=== PATIENT | male | born 1945 | race Caucasian/White ===

== ENCOUNTER 2019-01-04 10:06 | Emergency (ER) | payer MEDICARE, OTHER, SELFPAY ==
[2019-01-04 10:08] VITALS: BP 172/99; PULSE 67; RESP 16; TEMP 36.6; O2SAT 97; BMI 30.2
--- NOTE | 2019-01-04 10:23 | ED.DCSUM_ITS ---
History of Present Illness Chief Complaint: Dizziness Informant: Patient Onset: Weeks Current Severity: Mild Narrative: The patient indicates history of diabetes hearing aids, indicates complains that for about a week since last has had a buzzing sensation pinging sensation in the right ear, indicates initially occurred when he got out of the shower he had water in his ear canal he tried to remove it gently but he applied his hearing aid and then began having the sensation with that application of hearing aid just constant pinging buzzing noise to the right ear causing him to be dizzy and slightly nauseated, he has a history of vertigo but nothing recent [facility], he has no history of stroke or seizure he has had no head trauma otherwise no fever no cough chest pain abdominal pain no numbness weeks paresthesias he is able to eat and drink he was able to walk around the ED room without difficulty nothing makes the buzzing pinging sensation noise better, Past Medical History - Allergies and Home Meds Allergies/Adverse Reactions: Allergies No Known Allergies Allergy (Verified 01/04/19 10:07) Past Medical History: - - Diabetes and as above Review of Systems General: Denies: Chills, Fever, Sweats Eyes: Denies: Visual changes - bilaterally, Diplopia ENT: Reports: Right ear pain, - - Does not read described as a pain but a sensation of buzzing and pinging noises no trauma no drainage. Denies: Rhinorrhea, Sore throat Cardiovascular: Denies: Chest pain, Palpitations Respiratory: Denies: Dyspnea, Cough, Dyspnea on exertion Gastrointestinal: Denies: Abdominal pain, Nausea, Vomiting, Diarrhea, Melena, Hematochezia Genitourinary: Denies: Dysuria, Hematuria, Frequency Musculoskeletal: Denies: Back pain, Extremity Pain Skin: Denies: Rash, Wounds Neurological: Denies: Headache, Weakness, Numbness Physical Exam Vital Signs/Narrative: Vital Signs Temp Pulse Resp BP Pulse Ox 01/04/19 10:08 98 F 67 16 172/99 H 97 General: Well nourished, Well developed, No Acute Distress Head: Normocephalic, Atraumatic Eyes: Perrl, EOMI ENT: Moist mucous membranes, No rhinorrhea, TM's clear, - - Questionable minimal serous effusion to the right ear but generally the canal the drum are unremarkable he has the hearing aid out there is no pain with traction of the tragus the temporal bone and HEENT exam otherwise unremarkable Neck: Supple, Nontender Cardiovascular: Regular rate, Regular rhythm, No murmurs Respiratory: No distress, CTA bilaterally, Chest nontender Abdomen: Soft, Nontender, Nondistended, Normal bowel sounds Back: Nontender, Normal Inspection Extremities: Nontender, No edema Skin: Normal color, No rash Neurological: Alert, Oriented x3, Cranial nerves II-XII grossly intact, Normal Strength, Normal Sensation Psychological: Normal affect, Normal Mood Diagnostic/Tx/Re-eval - Medical Decision Making Patient's been having symptoms for about a week, he temporally describes all the above related to getting his ear wet applying the hearing aid etc. his only co mplaint is a sensation of noise to the right ear I explained the differential to him and his I explained that typically would do lab work head CT EKG etc. he declined all that he wanted some medicine for his current symptoms, he would prefer to follow-up with either the [facility] department or Dr. Vital who has seen family members of his At this time be started on amoxicillin Claritin Cortisporin otic suspension avoid using the hearing aid and follow-up with ENT physician of his choice return for change in symptoms Home stable Final impression Right ear discomfort, associated dizziness ED Disposition - Plan for ED Patient: Diagnosis: Tinnitus of right ear Instructions: DIZZINESS, Unk Cause, VERTIGO, Unspecified Prescriptions: Amoxicillin 500 mg PO TID #30 tab Prescription Printed Amoxicillin 500 mg PO TID #30 tab Prescription Printed Loratadine [Claritin] 10 mg PO DAILY #10 cap Prescription Printed Neomyc/Colist/Hydrocort/Thonzn [Cortisporin-Tc Ear Suspension] 10 ml OT 4X/DAY #10 drops.susp Prescription Printed Additional Instructions: Please follow-up with the ENT physician of your choice or Dr. Vital avoid using the hearing aid return for change in symptoms
== END 2019-01-04 10:52 | disposition home or self-care (01) ==
LOC: ED 10:41
PROVIDERS: Emergency Provider Emergency Medicine
DX: H93.11 Tinnitus, right ear (principal); R42 Dizziness and giddiness; E11.9 Type 2 diabetes mellitus without complications
CPT/HCPCS: 99282

== ENCOUNTER → 2020-10-29 16:14 | Outpatient (CLI) | payer MEDICARE, OTHER, SELFPAY ==
[2020-10-29 17:29] LABS: Absolute Neutrophil Count 4.7 X10^3/uL (2.0-7.7); Basophil# 0.06 X10^3/uL; Basophil% 0.7 % (0-1); Eosinophil# 0.12 X10^3/uL; Eosinophils% 1.5 % (0-5); Hematocrit 38.6 % (40-54); Hemoglobin 13.2 g/dL (13.0-16.5); Lymphocyte % 31.1 % (19-41); Mean Corp Hgb Conc 34.2 g/dL (32-36); Mean Corpuscular Hgb 31.3 pg (27.0-32.0); Mean Corpuscular Volume 91.5 fL (80-94); Mean Platelet Vol. 10.3 fl (6.2-12.0); Monocyte# 0.57 X10^3/uL; Monocyte% 7.1 % (0-10); NRBC Flagged by Analyzer 0 % (0-5); Neutrophil # 4.72 X10^3/uL (2.7-7.7); Neutrophil % 58.7 % (47-70); Platelet Count 268 K/mm3 (150-450); RBC Distribution Width CV 14.6 % (11.6-14.6); RBC Distribution Width SD 49.1 fl (35.1-43.9); Red Blood Count 4.22 M/mm3 (4.6-6.2)
[2020-10-29 18:00] LABS: ALB/GLOB Ratio 1.1 RATIO (0.9-2.4); AST(SGOT) 19 U/L (15-37); Alanine Aminotransfer ALT/SGPT 17 U/L (16-61); Albumin, Serum 3.7 g/dL (3.2-5.0); Alkaline Phosphatase 48 U/L (45-117); Anion Gap 5 (5-15); BUN 16 mg/dL (7-18); BUN/Creat Ratio 12.5 RATIO (10-20); Calcium,Total 8.9 mg/dL (8.5-10.1); Chloride 109 mmol/L (98-107); Creatinine, Serum 1.28 mg/dL (0.70-1.30); EST Glomerular Filtration Rate 58 mL/min (>60); Est Glom Filt Rate - Afr Amer 71 mL/min (>60); Globulin 3.4 g/dL (2.2-4.2); Glucose 168 mg/dL (74-106); PSA,Total - Annual Screen 1.27 ng/mL (0.00-4.00); Potassium 4.1 mmol/L (3.5-5.1); Protein, Total 7.1 g/dL (6.4-8.2); Sodium Level 142 mmol/L (136-145); Thyroid Stim Hormone (TSH) 1.84 uIU/mL (0.358-3.74); Uric Acid 7.2 mg/dL (3.5-7.2)
[2020-10-30 08:16] LABS: Hepatitis C Antibody REACTIVE (Nonreactive)
== END ==
PROVIDERS: Visit Provider Family Medicine Geriatric Medicine
DX: Z13.89 Encounter for screening for other disorder (principal); Z12.5 Encounter for screening for malignant neoplasm of prostate; M10.9 Gout, unspecified; I10 Essential (primary) hypertension
CPT/HCPCS: 36415; 80053; 84153; 84443; 84550; 85025; 86803; G0103

== ENCOUNTER → 2020-11-20 12:35 | Outpatient (CLI) | payer MEDICARE, SELFPAY ==
--- NOTE | 2020-11-20 12:41 | CT_ITS ---
STUDY: LOW DOSE CT LUNG CANCER SCREENING REASON FOR EXAM: Male, 75 years old. HO TOBACCO USE. Former smoker. The patient smoked 1 pack per day for 8 years. RADIATION DOSAGE (If Supplied By Facility): CTDIvol = ( 4.02 ) mGy, DLP = ( 152.00 ) mGycm TECHNIQUE: No contrast was administered. Low dose technique was utilized (average mAS-38 and kVp 120). 1.25 mm axial source images with a slice interval of 1.25-mm were reconstructed in lung windows. 2.5 mm axial source images with a slice interval of 2.5-mm were reconstructed in lung windows. 5.0 mm axial source images with a slice interval of 5.0-mm were reconstructed in soft tissue windows. Nodule measured using lung windows on PACS and/or independent workstation with automated measurement of minimum and maximum diameter. Nodule measurement reported as average diameter rounded to the nearest whole number. Growth is defined as an increase ins size of greater than 1.5 mm. COMPARISON: None. The patient is status post right shoulder replacement. NODULES: No suspicious nodules are seen. Emphysema: Mild degree of hyperinflation. Endobronchial lesion: None Aorta: Aortic calcification. Coronary arteries: Coronary artery calcification. Heart: Unremarkable Pulmonary artery: Unremarkable Mediastinal nodes: Calcified left hilar lymph nodes. Calcified lymph nodes in the aortopulmonary window. Other chest and abdominal findings: CT/Low Dose CT Lung Screening IMPRESSION: Lung-RADS category 2 - Continue annual screening with LDCT in 12 months. IMPORTANT NOTES FOR USE: ACR Lung-RADS Version 1.1 Assessment Categories Release Date: 2018 Category: Coded 0-4 bases on nodule(s) with highest degree of suspicion. Negative screen is defined as categories 1 and 2; a positive screen is defined as categories 3 and 4. Category 3 and 4A nodules that are unchanged on interval CT should be coded as category 2, and individuals returned to screening in 12 months. Category 4X: Category 3 or 4 nodules with additional imaging findings that increase the suspicion of lung cancer, such as spiculation, GGN that doubles in size in 1 year, enlarged lymph notes, etc. Category Modifiers: S (significant finding unrelated to lung cancer) Electronically Signed: Jude Sutton MD at 13:39 EDT , Service support ,
== END ==
PROVIDERS: PCP Family Medicine Geriatric Medicine; Referring Provider Family Medicine Geriatric Medicine; Visit Provider Family Medicine Geriatric Medicine
DX: Z12.2 Encounter for screening for malignant neoplasm of respiratory organs (principal); Z87.891 Personal history of nicotine dependence
CPT/HCPCS: 71271

== ENCOUNTER → 2021-01-29 13:41 | Outpatient (CLI) | payer MEDICARE, SELFPAY ==
[2021-01-29 16:45] LABS: Vitamin D,25 Hydroxy 32.6 ng/mL
[2021-01-29 16:58] LABS: ALB/GLOB Ratio 1.2 RATIO (0.9-2.4); AST(SGOT) 13 U/L (15-37); Alanine Aminotransfer ALT/SGPT 14 U/L (16-61); Albumin, Serum 3.6 g/dL (3.2-5.0); Alkaline Phosphatase 55 U/L (45-117); Anion Gap 7 (5-15); BUN 13 mg/dL (7-18); BUN/Creat Ratio 10.2 RATIO (10-20); Calcium,Total 8.6 mg/dL (8.5-10.1); Chloride 104 mmol/L (98-107); Creatinine, Serum 1.27 mg/dL (0.70-1.30); EST Glomerular Filtration Rate 59 mL/min (>60); Est Glom Filt Rate - Afr Amer 71 mL/min (>60); Globulin 3.1 g/dL (2.2-4.2); Glucose 263 mg/dL (74-106); Potassium 4.5 mmol/L (3.5-5.1); Protein, Total 6.7 g/dL (6.4-8.2); Sodium Level 137 mmol/L (136-145); Thyroid Stim Hormone (TSH) 1.45 uIU/mL (0.358-3.74); Uric Acid 4.5 mg/dL (3.5-7.2)
[2021-01-29 17:03] LABS: Absolute Lymphocyte Count 1.99 X10^3/uL (0.83-4.51); Basophil# 0.03 X10^3/uL; Basophil% 0.5 % (0-1); Eosinophil# 0.14 X10^3/uL; Eosinophils% 2.5 % (0-5); Hematocrit 37.9 % (40-54); Hemoglobin 13.1 g/dL (13.0-16.5); Lymphocyte # 1.99 X10^3/ul (0.83-4.51); Lymphocyte % 35.5 % (19-41); Mean Corp Hgb Conc 34.6 g/dL (32-36); Mean Corpuscular Hgb 31.9 pg (27.0-32.0); Mean Corpuscular Volume 92.2 fL (80-94); Mean Platelet Vol. 10.7 fl (6.2-12.0); Monocyte# 0.45 X10^3/uL; NRBC Flagged by Analyzer 0 % (0-5); Neutrophil # 2.99 X10^3/uL (2.7-7.7); Neutrophil % 53.3 % (47-70); Platelet Count 177 K/mm3 (150-450); RBC Distribution Width CV 14.2 % (11.6-14.6); RBC Distribution Width SD 47.6 fl (35.1-43.9); Red Blood Count 4.11 M/mm3 (4.6-6.2); White Blood Count 5.6 K/mm3 (4.4-11.0)
== END ==
PROVIDERS: PCP Family Medicine Geriatric Medicine; Visit Provider Family Medicine Geriatric Medicine
DX: E11.65 Type 2 diabetes mellitus with hyperglycemia (principal); I10 Essential (primary) hypertension; E55.9 Vitamin D deficiency, unspecified; M10.9 Gout, unspecified
CPT/HCPCS: 36415; 80053; 82306; 84443; 84550; 85025

== ENCOUNTER → 2021-11-10 | Outpatient (CLI) | payer MEDICARE, SELFPAY ==
[2021-11-10 17:32] LABS: Absolute Lymphocyte Count 2.17 X10^3/uL (0.83-4.51); Absolute Neutrophil Count 3.6 X10^3/uL (2.0-7.7); Basophil# 0.03 X10^3/uL; Basophil% 0.5 % (0-1); Eosinophil# 0.11 X10^3/uL; Eosinophils% 1.7 % (0-5); Hematocrit 39.1 % (40-54); Hemoglobin 13.3 g/dL (13.0-16.5); Lymphocyte # 2.17 X10^3/ul (0.83-4.51); Lymphocyte % 34.3 % (19-41); Mean Corpuscular Hgb 31.5 pg (27.0-32.0); Mean Corpuscular Volume 92.7 fL (80-94); Mean Platelet Vol. 11.4 fl (6.2-12.0); Monocyte# 0.41 X10^3/uL; Monocyte% 6.5 % (0-10); NRBC Flagged by Analyzer 0 % (0-5); Neutrophil # 3.58 X10^3/uL (2.7-7.7); Neutrophil % 56.5 % (47-70); Platelet Count 172 K/mm3 (150-450); RBC Distribution Width CV 14.7 % (11.6-14.6); RBC Distribution Width SD 49.8 fl (35.1-43.9); Red Blood Count 4.22 M/mm3 (4.6-6.2); White Blood Count 6.3 K/mm3 (4.4-11.0)
[2021-11-10 19:00] LABS: ALB/GLOB Ratio 1.2 RATIO (0.9-2.4); AST(SGOT) 16 U/L (15-37); Alanine Aminotransfer ALT/SGPT 14 U/L (16-61); Albumin, Serum 3.7 g/dL (3.2-5.0); Alkaline Phosphatase 52 U/L (45-117); Anion Gap 7 (5-15); BUN 25 mg/dL (7-18); BUN/Creat Ratio 18.9 RATIO (10-20); Calcium,Total 9.1 mg/dL (8.5-10.1); Chloride 109 mmol/L (98-107); Cholesterol 118 mg/dL (200); Creatinine, Serum 1.32 mg/dL (0.70-1.30); EST Glomerular Filtration Rate 56 mL/min (>60); Est Glom Filt Rate - Afr Amer 68 mL/min (>60); Glucose 269 mg/dL (74-106); High Density Lipoprotein 33 mg/dL; Potassium 4.5 mmol/L (3.5-5.1); Protein, Total 6.7 g/dL (6.4-8.2); Sodium Level 140 mmol/L (136-145); Thyroid Stim Hormone (TSH) 1.52 uIU/mL (0.358-3.74); Triglycerides 145 mg/dL; Uric Acid 5.1 mg/dL (3.5-7.2); Very Low Density Lipoprotein 29 mg/dL (5-40)
== END | disposition home or self-care (01) ==
LOC: POLAB3 14:56
PROVIDERS: PCP Family Medicine Geriatric Medicine; Visit Provider Family Medicine Geriatric Medicine
DX: E55.9 Vitamin D deficiency, unspecified (principal); E11.65 Type 2 diabetes mellitus with hyperglycemia; E78.5 Hyperlipidemia, unspecified; M10.9 Gout, unspecified; R53.83 Other fatigue
CPT/HCPCS: 36415; 80053; 80061; 82306; 84443; 84550; 85025

== ENCOUNTER → 2022-03-02 | Outpatient (CLI) | payer MEDICARE, SELFPAY ==
--- NOTE | 2022-03-02 15:11 | VDLE_ITS ---
Reason For Study: edema RIGHT GSV is normal. CFV is compressible, spontaneous, phasic, competent and demonstrates normal augmentation. FV is compressible, spontaneous, phasic, competent and demonstrates normal augmentation. POP V is compressible, spontaneous, phasic, competent and demonstrates normal augmentation. T/P Trunk is compressible. PTV is compressible. RT PerV is compressible. Procedure This is a venous duplex using B-mode, color flow and spectral Doppler. Exam performed in department. The exam was abbreviated due to the COVID 19 protocol. The exam was diagnostic. A preliminary report was called and/or faxed to Dr. Cochran. VL/Venous Duplex US, Unilateral Interpretation Summary Deep veins of the right lower extremity are patent and compressible segmentally . There is no evidence of right lower extremity deep vein thrombosis. Valvular competence estefany ears intact within the proximal deep venous system on the right . The right great saphenous vein a ppears patent and compressible segmentally. Ordering Physician: Rojelio Cochran Chi Performed By: Rufus Moy RVT
--- NOTE | 2022-03-02 15:35 | RAD_ITS ---
STUDY: X-RAY - RIGHT KNEE REASON FOR EXAM: Chronic right knee pain. TECHNIQUE: 4 view(s) of the knee. COMPARISON: None. FINDINGS: Normal visualized distal femur. Normal visualized proximal tibia and fibula. Normal proximal tibiofibular articulation. There are marginal osteophytes and joint space loss of the medial femorotibial compartment. There are small marginal osteophytes with preservation of joint space of the lateral femorotibial compartment. There are marginal osteophytes and joint space narrowing of the patellofemoral articulation. There is a joint effusion. There is vascular calcification. RAD/Knee 4 or More Views IMPRESSION: Arthrosis of the medial femorotibial and patellofemoral compartments. Joint effusion. Electronically Signed: Wyatt Dotson MD at 15:00 EDT ,
== END | disposition home or self-care (01) ==
LOC: CVS 15:09
PROVIDERS: PCP Family Medicine Geriatric Medicine; Referring Provider Family Medicine Geriatric Medicine; Visit Provider Family Medicine Geriatric Medicine
DX: R60.0 Localized edema (principal); M25.569 Pain in unspecified knee
CPT/HCPCS: 73564; 93971

== ENCOUNTER → 2022-04-07 | Outpatient (CLI) | payer MEDICARE, SELFPAY | END | disposition home or self-care (01) | LOC: PSN 08:49 | PROVIDERS: PCP Family Medicine Geriatric Medicine; Referring Provider Family Medicine Geriatric Medicine; Visit Provider Family Medicine Geriatric Medicine | DX: R68.83 Chills (without fever) (principal) | CPT/HCPCS: 87426; C9803 ==

== ENCOUNTER → 2022-05-11 | Outpatient (CLI) | payer MEDICARE, SELFPAY ==
[2022-05-11 17:08] LABS: Absolute Lymphocyte Count 2.19 X10^3/uL (0.83-4.51); Absolute Neutrophil Count 4.6 X10^3/uL (2.0-7.7); Basophil# 0.04 X10^3/uL; Basophil% 0.5 % (0-1); Eosinophil# 0.08 X10^3/uL; Eosinophils% 1.1 % (0-5); Hematocrit 39.9 % (40-54); Hemoglobin 13.5 g/dL (13.0-16.5); Lymphocyte # 2.19 X10^3/ul (0.83-4.51); Lymphocyte % 29.9 % (19-41); Mean Corp Hgb Conc 33.8 g/dL (32-36); Mean Corpuscular Hgb 31.7 pg (27.0-32.0); Mean Corpuscular Volume 93.7 fL (80-94); Mean Platelet Vol. 10.7 fl (6.2-12.0); Monocyte# 0.43 X10^3/uL; Monocyte% 5.9 % (0-10); NRBC Flagged by Analyzer 0 % (0-5); Neutrophil # 4.58 X10^3/uL (2.7-7.7); Neutrophil % 62.5 % (47-70); Platelet Count 194 K/mm3 (150-450); RBC Distribution Width CV 15.9 % (11.6-14.6); RBC Distribution Width SD 54.4 fl (35.1-43.9); Red Blood Count 4.26 M/mm3 (4.6-6.2); White Blood Count 7.3 K/mm3 (4.4-11.0)
[2022-05-11 17:47] LABS: Vitamin D,25 Hydroxy 35.9 ng/mL
[2022-05-11 18:32] LABS: ALB/GLOB Ratio 1.1 RATIO (0.9-2.4); AST(SGOT) 14 U/L (15-37); Alanine Aminotransfer ALT/SGPT 15 U/L (16-61); Albumin, Serum 3.6 g/dL (3.2-5.0); Alkaline Phosphatase 54 U/L (45-117); Anion Gap 9 (5-15); BUN 25 mg/dL (7-18); BUN/Creat Ratio 19.2 RATIO (10-20); Calcium,Total 9.1 mg/dL (8.5-10.1); Chloride 105 mmol/L (98-107); EST Glomerular Filtration Rate 57 mL/min (>60); Est Glom Filt Rate - Afr Amer 69 mL/min (>60); Globulin 3.2 g/dL (2.2-4.2); Glucose 197 mg/dL (74-106); Potassium 3.8 mmol/L (3.5-5.1); Protein, Total 6.8 g/dL (6.4-8.2); Sodium Level 140 mmol/L (136-145); Thyroid Stim Hormone (TSH) 1.39 uIU/mL (0.358-3.74); Uric Acid 4.7 mg/dL (3.5-7.2)
== END | disposition home or self-care (01) ==
LOC: POLAB3 13:55
PROVIDERS: PCP Family Medicine Geriatric Medicine; Visit Provider Family Medicine Geriatric Medicine
DX: I10 Essential (primary) hypertension (principal); E11.65 Type 2 diabetes mellitus with hyperglycemia; M10.9 Gout, unspecified; E55.9 Vitamin D deficiency, unspecified; F52.8 Other sexual dysfunction not due to a substance or known physiological condition
CPT/HCPCS: 36415; 80053; 82306; 84403; 84443; 84550; 85025

== ENCOUNTER 2022-06-23 08:37 | Outpatient (CLI) | payer MEDICARE, SELFPAY ==
--- NOTE | 2022-06-23 10:29 | NEURO_ITS ---
NCS and/or EMG Patient Report Ordering Doctor: Rojelio Cochran Chi DATE OF SERVICE: 06/23/22 Bryan presents for electrodiagnostic testing of the right lower limb. He reports numbness and tingling in the right leg from the knee to the foot. He has a history of diabetes. Electrodiagnostic findings: Right peroneal nerve demonstrates normal distal latency and amplitude with borderline reduced conduction velocity. Right tibial motor responses within normal limits prolonged right tibial F wave. Prolonged H reflex bilaterally. Absent sensory responses on the right side, including sural superficial peroneal and medial plantar response. On needle EMG, all muscles tested in the right lower limb, as well as right l umbar paraspinals, showed no evidence of denervation with normal motor unit action potentials Electrodiagnostic impression: This is an abnormal study in the right lower limb. 1. Electrodiagnostic findings demonstrate absence of sensory response in the right lower limb. 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 Consider correlation with left lower limb and potentially one upper limb further evaluate. 2. No electrodiagnostic evidence is noted for lumbosacral radiculopathy
== END 2022-06-23 23:59 | disposition home or self-care (01) ==
LOC: PSN 08:39
PROVIDERS: PCP Family Medicine Geriatric Medicine; Referring Provider Family Medicine Geriatric Medicine; Visit Provider Family Medicine Geriatric Medicine
DX: M25.569 Pain in unspecified knee (principal); R20.0 Anesthesia of skin; R20.2 Paresthesia of skin
CPT/HCPCS: 95886; 95910

== ENCOUNTER → 2022-08-17 | Outpatient (CLI) | payer MEDICARE, SELFPAY ==
--- NOTE | 2022-08-17 12:21 | RAD_ITS ---
STUDY: X-RAY - LEFT WRIST REASON FOR EXAM: Male, 76 years old. Pain, history of gout TECHNIQUE: 3 view(s) of the wrist were obtained. COMPARISON: None. FINDINGS: Normal visualized distal radius and ulna. Calcific densities adjacent to the distal ulna likely represent old ununited fracture fragments. Normal radiocarpal articulation. Normal distal radioulnar articulation. Normal carpal bones. Normal carpal articulations. There is degenerative arthrosis of the carpometacarpal articulation of the thumb. Normal second through fifth carpometacarpal articulations. Normal visualized metacarpal bones. The soft tissue structures are unremarkable. RAD/Wrist min 3 Views IMPRESSION: No acute fracture or suspicious osseous lesion, likely old ununited fracture fragments adjacent to the distal ulna Severe first CMC joint arthrosis without subchondral change Electronically Signed: Johnson Whyte MD at 12:41 EDT ,
[2022-08-17 13:31] LABS: Erythrocyte Sedimentation Rate 4 mm/hr (0-20)
[2022-08-17 13:33] LABS: Absolute Lymphocyte Count 2.14 X10^3/uL (0.83-4.51); Absolute Neutrophil Count 3.9 X10^3/uL (2.0-7.7); Basophil# 0.06 X10^3/uL; Basophil% 0.9 % (0-1); Eosinophil# 0.26 X10^3/uL; Eosinophils% 3.8 % (0-5); Hematocrit 39.9 % (40-54); Hemoglobin 13.4 g/dL (13.0-16.5); Lymphocyte # 2.14 X10^3/ul (0.83-4.51); Lymphocyte % 31.1 % (19-41); Mean Corp Hgb Conc 33.6 g/dL (32-36); Mean Corpuscular Hgb 30.7 pg (27.0-32.0); Mean Corpuscular Volume 91.3 fL (80-94); Mean Platelet Vol. 10.5 fl (6.2-12.0); Monocyte# 0.49 X10^3/uL; Monocyte% 7.1 % (0-10); NRBC Flagged by Analyzer 0 % (0-5); Neutrophil # 3.91 X10^3/uL (2.7-7.7); Neutrophil % 56.8 % (47-70); Platelet Count 195 K/mm3 (150-450); RBC Distribution Width CV 16.6 % (11.6-14.6); RBC Distribution Width SD 54.9 fl (35.1-43.9); Red Blood Count 4.37 M/mm3 (4.6-6.2); White Blood Count 6.9 K/mm3 (4.4-11.0)
[2022-08-17 13:47] LABS: Anion Gap 8 (5-15); BUN 16 mg/dL (7-18); BUN/Creat Ratio 12.5 RATIO (10-20); CRP 5.25 mg/L (0.0-3.0); Chloride 110 mmol/L (98-107); Creatinine, Serum 1.28 mg/dL (0.70-1.30); EST Glomerular Filtration Rate 58 mL/min (>60); Est Glom Filt Rate - Afr Amer 70 mL/min (>60); Glucose 183 mg/dL (74-106); Potassium 4.4 mmol/L (3.5-5.1); Sodium Level 142 mmol/L (136-145); Uric Acid 3.8 mg/dL (3.5-7.2)
== END | disposition home or self-care (01) ==
PROVIDERS: PCP Family Medicine Geriatric Medicine; Visit Provider Family Medicine Geriatric Medicine
DX: M10.9 Gout, unspecified (principal); M25.522 Pain in left elbow
CPT/HCPCS: 36415; 73110; 80048; 84550; 85025; 85652; 86140

== ENCOUNTER → 2022-09-15 | Outpatient (CLI) | payer MEDICARE, SELFPAY ==
[2022-09-15 18:05] LABS: Hematocrit 38.8 % (40-54); Hemoglobin 13.3 g/dL (13.0-16.5); Mean Corp Hgb Conc 34.3 g/dL (32-36); Mean Corpuscular Hgb 31.4 pg (27.0-32.0); Mean Corpuscular Volume 91.7 fL (80-94); Mean Platelet Vol. 10.7 fl (6.2-12.0); Platelet Count 227 K/mm3 (150-450); RBC Distribution Width CV 16.8 % (11.6-14.6); RBC Distribution Width SD 55.7 fl (35.1-43.9); Red Blood Count 4.23 M/mm3 (4.6-6.2); White Blood Count 7.1 K/mm3 (4.4-11.0)
[2022-09-15 18:11] LABS: International Normalized Ratio 1.1; Prothrombin Time (Protime)PT. 14.1 SECONDS (11.7-14.9)
[2022-09-15 18:27] LABS: Anion Gap 9 (5-15); BUN 26 mg/dL (7-18); BUN/Creat Ratio 17.6 RATIO (10-20); Calcium,Total 9.4 mg/dL (8.5-10.1); Chloride 109 mmol/L (98-107); Creatinine, Serum 1.48 mg/dL (0.70-1.30); EST Glomerular Filtration Rate 49 mL/min (>60); Est Glom Filt Rate - Afr Amer 59 mL/min (>60); Glucose 216 mg/dL (74-106); Potassium 4.3 mmol/L (3.5-5.1); Sodium Level 139 mmol/L (136-145)
[2022-09-16 14:44] LABS: AST(SGOT) 19 U/L (15-37); Alanine Aminotransfer ALT/SGPT 19 U/L (16-61); Albumin, Serum 3.8 g/dL (3.2-5.0); Alkaline Phosphatase 51 U/L (45-117); Bilirubin, Direct 0.12 mg/dL (0.00-0.30); Globulin 3.3 g/dL (2.2-4.2); Magnesium 1.7 mg/dL (1.6-2.6); Protein, Total 7.1 g/dL (6.4-8.2)
[2022-09-16 15:14] LABS: Hemoglobin A1c 6.7 % (3.8-5.6)
== END | disposition home or self-care (01) ==
LOC: POLAB3 16:27
PROVIDERS: Anesthesiology; Orthopaedic Surgery; PCP Family Medicine Geriatric Medicine; Visit Provider Family Medicine Geriatric Medicine
DX: Z01.818 Encounter for other preprocedural examination (principal); E11.65 Type 2 diabetes mellitus with hyperglycemia
CPT/HCPCS: 36415; 80048; 80076; 83036; 83735; 85027; 85610

== ENCOUNTER → 2022-09-20 | Outpatient (CLI) | payer OTHER, SELFPAY ==
--- NOTE | 2022-09-20 16:53 | CT_ITS ---
EXAM: CT RIGHT LOWER EXTREMITY WITHOUT INTRAVENOUS CONTRAST CLINICAL INDICATION: UNILATERAL PRIMARY OSTEOARTHRITIS, RIGHT KNEE TECHNIQUE: Helically acquired images were obtained of the right lower extremity without intravenous contrast. 2-D reformats were performed by the technologist. CTDIvol = ( 19.91 ) mGy, DLP = ( 1234.53 ) mGycm This CT exam was performed using one or more of the following dose reduction techniques: automated exposure control, adjustment of the mA and/or kV according to patient size, and/or use of iterative reconstruction technique. This report was created using [employer] technology. COMPARISON: None. FINDINGS: BONES/JOINTS: Severe tricompartmental osteoarthritis of right knee is worse at the patellofemoral and medial femorotibial compartments. At least moderate suprapatellar joint effusion. Moderate osteoarthrosis involving the right hip. Mild to moderate osteoarthrosis of the tibiotalar articulation. Ankle mortise is intact with no osteochondral lesions at the tibiotalar articulation. Prominent posterior calcaneal enthesophyte. Old nonunited fracture involving the fibular head. No acute or healing fracture or malalignment. SOFT TISSUES: Intra-articular ossific bodies are identified within a small Lowe''s cyst, the larger one measuring up to 2 cm. No soft tissue swelling or gas. No radiopaque foreign body. VASCULATURE: Peripheral vascular calcifications. CT/Extremity Lower without Contra IMPRESSION: Preoperative planning study showing severe tricompartmental osteoarthrosis of the knee. Intra-articular ossific bodies within a small Lowe''s cyst. Electronically Signed: David Hammonds MD at 3:59 EDT ,
== END | disposition home or self-care (01) ==
LOC: CT 16:38
PROVIDERS: PCP Family Medicine Geriatric Medicine; Referring Provider Orthopaedic Surgery; Visit Provider Orthopaedic Surgery
DX: M17.11 Unilateral primary osteoarthritis, right knee (principal)
CPT/HCPCS: 73700

== ENCOUNTER → 2022-09-23 | Outpatient (CLI) | payer MEDICARE, SELFPAY ==
[2022-09-23 10:25] LABS: Anion Gap 6 (5-15); BUN 19 mg/dL (7-18); BUN/Creat Ratio 14.1 RATIO (10-20); Calcium,Total 9.6 mg/dL (8.5-10.1); Chloride 107 mmol/L (98-107); Creatinine, Serum 1.35 mg/dL (0.70-1.30); EST Glomerular Filtration Rate 55 mL/min (>60); Est Glom Filt Rate - Afr Amer 66 mL/min (>60); Glucose 243 mg/dL (74-106); Sodium Level 136 mmol/L (136-145)
== END | disposition home or self-care (01) ==
LOC: LAB 09:34
PROVIDERS: PCP Family Medicine Geriatric Medicine; Referring Provider Family Medicine Geriatric Medicine; Visit Provider Family Medicine Geriatric Medicine
DX: R94.4 Abnormal results of kidney function studies (principal)
CPT/HCPCS: 36415; 80048

== ENCOUNTER 2022-09-27 05:19 | Day surgery (SDC) | payer OTHER, SELFPAY ==
[2022-09-27] VITALS (17 sets, daily range): BP systolic 100–150; BP diastolic 67–95; PULSE 69–82; RESP 14–18; TEMP 36.2–37.4; O2SAT 97–100; BMI 27.8
--- NOTE | 2022-09-27 | KNEE_PTH ---
PATIENT: BRYAN REEDER LOC: [facility] U#:[id number] AGE/SX: 76/M ROOM: RE09/27/[address]: Dr. Bryan Marc DO : 1945 BED: DIS: 09/27/2022 SPEC #: [id number] RECD: 09/27/22 13:45 STATUS: JEREMI REQ #: [id number] NAKIA: 09/27/22 00:[address]: Bryan Marc DEPT: SURGICAL PATHOLOGY RECD BY: Eduardo Salmeron ENTERED: 09/28/22 09:28 SP TYPE: TOTAL KNEE OTHR DR: Dr. Rojelio Cochran MD Tissues: Knee, NOS Procedures: Decalcification bone/plaque Surgery Specimen Level IV HEADER OPERATION: ERAS, total knee replacement robotic arm assist PRE-OP DIAGNOSIS: Primary osteoarthritis TISSUE SUBMITTED: Right knee bone MICROSCOPIC DIAGNOSIS Right knee bone, total knee replacement/resection: Pieces of bone with degenerative osteoarthritic changes. Fibroadipose tissue, fibroconnective tissue and reactive synovial tissue. Focal changes consistent with pseudogout. SJ:rachel 10/01/2022 MICROSCOPIC DESCRIPTION Slides are reviewed. GROSS DESCRIPTION Received is one container designated bone and tissue right knee. The specimen consists of multiple fragments of dodge-yellow bone measuring in aggregate 16.0 x 15.0 x 2.5 cm. Also in the specimen container are multiple fragments of yellow-white soft tissue measuring in aggregate 6.0 x 3.0 x 2.0 cm. A number of bony fragments contain articular surfaces consistent with tibial plateau and femoral condyle and displaying prominent osteophyte formation, eburnation and bone erosion. Spearer sections are submitted in two cassettes as follows: 1 - soft tissue, 2 - bone after decalcification. / AM:rachel 09/28/2022 TC:5 CPT: 74565, [id number]
[2022-09-27] MEDS: Acetaminophen 500 MG Tablet 1000 MG PO ×2 (06:17→15:27)
[2022-09-27] MEDS: Magnesium 2 GM for ERAS IV (06:17)
[2022-09-27] MEDS: Gabapentin 600 MG Tablet PO (06:17)
[2022-09-27] MEDS: Lactated Ringers 1,000 ML 15 ML IV (06:21)
[2022-09-27 06:56] LABS: Bedside Glucose 118 mg/dL (74-106)
[2022-09-27] MEDS: Cefazolin 2 GM in 0.9% Normal Saline 100 ML IV (07:44)
[2022-09-27] MEDS: TXA 1000mg in NS100 100ml (IVPB at Incision) 660 MG IV (07:51)
[2022-09-27] MEDS: JPS (Morphine 10mg/ml) OPERA.SITE (08:57)
[2022-09-27] MEDS: TXA 1000mg in NS100 100ml (IVPB at Closure) 660 MG IV (09:15)
--- NOTE | 2022-09-27 09:20 | OP.PCM_ITS ---
Report of Operation Date of Procedure: 09/27/22 Pre-Operative Diagnosis: OA right knee Post-Operative Diagnosis: same Surgery/Procedure Performed:: Right TKR Description of Surgical Findings:: Report of Operation Date of Procedure: 09/27/2022 Preoperative Diagnosis: [ right ] knee primary osteoarthritis Postoperative Diagnosis: [right ] knee primary osteoarthritis Operation: Robotic Assisted Knee Total Arthroplasty, [right ] knee Surgeon: Dr Bryan Marc DO Reactor Service Operator: Bhanu Miller PA-C Anesthesia: spinal Anesthesiologist: Felton Gomez M.D. Findings: Stable knee with good patella tracking Specimen(s): Bony cuts Complications: No intraoperative complications Estimated Blood Loss: 20 cc IV Fluids: 1000 cc crystalloid Implants Used: 1. Matthias Triathlon press-fit CR size 7 femur 2. Gillett Triathlon size 7 tibia 3. 35 mm patella 4. 9 mm CS polyethylene Brief History Operative Indications: [ (76 y/o male) ] with history of [right ] knee osteoarthrosis with radiographic findings with loss of joint space, osteophyte formation and subchondral sclerosis. Failed conservative measures as mentioned in the H&P. Discussion of total knee arthroplasty as well as risk and benefits were discussed with the patient including but not limited to blood loss, DVTs, PEs, neurovascular damage, general risk of anesthesia including loss of life, and stiffness or instability were also discussed with the patient. Patient demonstrated understanding and was able to sign informed consent. Procedure: On the date of procedure, patient's [ right ] lower extremity was marked in the preoperative area. The patient was then taken back to the operating room where that patient was placed on the table in the supine position. All bony prominences were identified and well-padded. Anesthesia assumed control of the C-spine and airway throughout the remainder of the procedure. A tourniquet was placed on the [right ] upper thigh and the leg was prepped in a sterile fashion. The surgeon then scrubbed at this time. Upon reentering the room, the [ right ] lower extremity was draped in a standard orthopedic fashion. A timeout was then called and everyone agreed upon the side, the site, the procedure to be performed, patient's identity and antibiotics given. Esmarch bandage was used to exsanguinate the extremity and the tourniquet was placed up to 250 mmHg with the knee in flexion. A midline skin incision was made and a sharp dissection was taken down through skin, subcutaneous tissue and fat. The standard medial parapatellar incision was made and the patella was subluxed laterally. An appropriate deep MCL release was done and the fat pad was resected. Our attention was then directed to the patella. The patella was everted and a flat resection was made. The knee was then flexed up and 2 femoral pins were placed inside the incision and 2 tibial pins were placed outside the incision in the medial tibia bicortically. Once this was completed, the 2 checkpoints in the femur and tibia were placed. Knee was then flexed up and the bony landmarks were registered. Once the was completed, the knee taken through range of motion and manually stressed allowing us to plan for an appropriate tibial cut. The robotic arm was brought into the field sterilely and checkpoint and saw were registered. Based on the patient's deformity, the tibial cut was made in [2 degrees varus ]. At this time, the tensioner was then placed in the joint and ligament tension was checked at 90 degrees and full extension. Based on the patient's ligamentous tension, appropriate adjustments were made to the operative plan and ligament releases were done. Once we were happy with our operative plan with balanced flexion and extension gaps, our attention was directed to the femur. The robot was brought into the field sterilely and registered. Posterior condylar cuts, anterior chamfer cuts and anterior cuts were appropriately made for a [size 7 ] femur. When these were completed, the saws were switched out in the distal femoral and posterior chamfer cuts were made. Protecting the soft tissue throughout this time. A [size 7 ] base plate was selected. The knee was flexed to 90 degrees and soft tissues and posterior osteophytes were removed from the joint. 40 cc of the periarticular injection was injected into the posterior medial corner of the joint. The appropriate trials were then placed on the femur and tibia. A trial polyethylene was trialed to ensure proper balancing and stability of the knee. The appropriate tibial internal rotation was then marked with a bovie. Our attention was then directed to the patella. The lug holes were drilled and the patella trial was placed. Patellar tracking was checked and deemed appropri ate. Once we were happy, lug holes were drilled for the femur and trial components were removed. The tibia was subluxed and pinned into place and the keel was punched and drilled appropriately. Final components were verified and opened. The wound was copiously irrigated with normal saline. The components were impacted into place with the tibia, femur and finally the patella. The trial poly component was placed and the knee was placed in full extension. The tracking, alignment and balance were verified and a [9 mm CS ] polyethylene component was placed. Once the final components were placed an Irrisept lavage was performed and the wound was copiously irrigated with normal saline solution and the periarticular injection was given. the wound was closed in a layer-bills fashion using #1 vi cryl interrupted sutures for the arthrotomy, 2-0 interrupted vicryl suture for the subcuticular layer and marilin for final skin closure. A sterile compressive dressing was then placed. The patient was then awakened from anesthesia, transferred to the [facility] and transferred to the PACU for recovery. My physician payroll administrative assistant was a vital part of this case. He was important in appropriate retraction during the case, and protection of soft tissues during bony cuts. His intimate knowledge of the case and my steps aided in safe and expedient completion of the procedure as well as appropriate position of the leg during the case. He was also vital in assisting with closure under my direct supervision. Due to the complexity of this case, robotic arm was used to assist in the surgery to improve accuracy and clinical outcomes. Post-op Plan: DVT ppx; ASA 81 mg BID, thigh high compression stockings Follow up: in office in 2 weeks for wound check PT: to start POD #0 at hospital, outpatient PT should be arranged. Preoperative antibiotic: Ancef 2 grams IV Bryan Marc DO Surgeon: Bryan Marc security solutions engineer: Bhanu Miller Type of Anesthesia: Spinal Anesthesiologist: Felton Gomez Specimen's removed: bone Estimated Blood Loss (mL): 20 cc Fluids Replaced: 1000 cc crystalloid Admit VTE Documentation VTE Present on Admission: No VTE Mechan Device Prophylaxis: SCD's and Thigh High STANTON Hose VTE Pharm Prophylaxis ordered?: Yes
[2022-09-27] MEDS: Lactated Ringers 1,000 ML 999 ML IV (09:46)
--- NOTE | 2022-09-27 09:50 | RAD_ITS ---
STUDY: X-RAY - RIGHT KNEE REASON FOR EXAM: Male, 76 years old. Post op -- in PACU TECHNIQUE: 2 view(s) of the knee. COMPARISON: None. FINDINGS: Normal visualized distal femur. Normal visualized proximal tibia and fibula. Normal proximal tibiofibular articulation. The patient is status post total knee replacement. There is good alignment. Postoperative soft tissue changes. RAD/Knee 1 or 2 Views IMPRESSION: Status post total knee replacement. There is good alignment. Postoperative soft tissue changes. Electronically Signed: Jude Sutton MD at 12:41 EDT ,
--- NOTE | 2022-09-27 10:48 | EKG12_ITS ---
Test Reason : POSTOP Blood Pressure : / mmHG Vent. Rate : 076 BPM Atrial Rate : 074 BPM P-R Int : 000 ms QRS Dur : 082 ms QT Int : 452 ms P-R-T Axes : 000 -30 038 degrees QTc Int : 508 ms Atrial fibrillation Left axis deviation Nonspecific T wave abnormality Prolonged QT Abnormal ECG When compared with ECG of 24-MAY-2002 13:51, Atrial fibrillation has replaced Sinus rhythm QRS axis Shifted left Confirmed by RENATE ACOSTA, MADISON ([id number]), health editor KYRA CEE ([id number]) on 09/30/2022 9:27:24 AM Referred By: Bryan Marc Confirmed By:MADISON DEWITT MD
[2022-09-27] MEDS: Lactated Ringers 1,000 ML 125 ML IV (11:11)
[2022-09-27 11:41] LABS: Bedside Glucose 143 mg/dL (74-106)
[2022-09-27 11:47] LABS: Troponin-I HS 6 pg/mL (3.0-78.0)
[2022-09-27] MEDS: oxyCODONE 5 MG Tablet PO (15:27)
== END 2022-09-27 15:45 | disposition home or self-care (01) ==
LOC: SDC 05:20 → AC 05:20
PROVIDERS: Anesthesiology; PCP Family Medicine Geriatric Medicine; Referring Provider Orthopaedic Surgery; Visit Provider Orthopaedic Surgery
PROC: 0SRC0JZ Replacement of Right Knee Joint with Synthetic Substitute, Open Approach (ICD-10-PCS; CPT 27447; principal; 2022-09-27 07:00)
DX: M17.11 Unilateral primary osteoarthritis, right knee (principal); E11.9 Type 2 diabetes mellitus without complications; I10 Essential (primary) hypertension; F32.A Depression, unspecified; E78.00 Pure hypercholesterolemia, unspecified; Z87.891 Personal history of nicotine dependence
CPT/HCPCS: 27447; 01402; 36415; 73560; 82962; 84484; 87081; 88305; 88311; 93005; 97162; C1776; J7120

== ENCOUNTER → 2022-11-15 | Outpatient (CLI) | payer MEDICARE, SELFPAY ==
[2022-11-15 12:01] LABS: Absolute Lymphocyte Count 1.83 X10^3/uL (0.83-4.51); Absolute Neutrophil Count 4.9 X10^3/uL (2.0-7.7); Basophil# 0.05 X10^3/uL; Basophil% 0.7 % (0-1); Eosinophil# 0.08 X10^3/uL; Eosinophils% 1.1 % (0-5); Hematocrit 38.8 % (40-54); Hemoglobin 12.9 g/dL (13.0-16.5); Lymphocyte # 1.83 X10^3/ul (0.83-4.51); Lymphocyte % 24.7 % (19-41); Mean Corp Hgb Conc 33.2 g/dL (32-36); Mean Corpuscular Hgb 31.3 pg (27.0-32.0); Mean Corpuscular Volume 94.2 fL (80-94); Mean Platelet Vol. 9.1 fl (6.2-12.0); Monocyte# 0.48 X10^3/uL; Monocyte% 6.5 % (0-10); NRBC Flagged by Analyzer 0 % (0-5); Neutrophil # 4.93 X10^3/uL (2.7-7.7); Neutrophil % 66.5 % (47-70); Platelet Count 278 K/mm3 (150-450); RBC Distribution Width CV 15.3 % (11.6-14.6); RBC Distribution Width SD 52.2 fl (35.1-43.9); Red Blood Count 4.12 M/mm3 (4.6-6.2); White Blood Count 7.4 K/mm3 (4.4-11.0)
[2022-11-15 12:30] LABS: Vitamin D,25 Hydroxy 37.6 ng/mL
[2022-11-15 12:36] LABS: ALB/GLOB Ratio 0.9 RATIO (0.9-2.4); AST(SGOT) 16 U/L (15-37); Alanine Aminotransfer ALT/SGPT 12 U/L (16-61); Albumin, Serum 3.4 g/dL (3.2-5.0); Alkaline Phosphatase 72 U/L (45-117); Anion Gap 7 (5-15); BUN 13 mg/dL (7-18); BUN/Creat Ratio 12.3 RATIO (10-20); Calcium,Total 9.2 mg/dL (8.5-10.1); Chloride 106 mmol/L (98-107); Cholesterol 116 mg/dL (200); Creatinine, Serum 1.06 mg/dL (0.70-1.30); EST Glomerular Filtration Rate 72 mL/min (>60); Est Glom Filt Rate - Afr Amer 87 mL/min (>60); Globulin 3.9 g/dL (2.2-4.2); Glucose 183 mg/dL (74-106); High Density Lipoprotein 39 mg/dL; Protein, Total 7.3 g/dL (6.4-8.2); Sodium Level 138 mmol/L (136-145); Thyroid Stim Hormone (TSH) 1.97 uIU/mL (0.358-3.74); Triglycerides 162 mg/dL; Uric Acid 4.2 mg/dL (3.5-7.2); Very Low Density Lipoprotein 32 mg/dL (5-40)
== END | disposition home or self-care (01) ==
LOC: LAB 11:35
PROVIDERS: PCP Family Medicine Geriatric Medicine; Referring Provider Family Medicine Geriatric Medicine; Visit Provider Family Medicine Geriatric Medicine
DX: E55.9 Vitamin D deficiency, unspecified (principal); E11.65 Type 2 diabetes mellitus with hyperglycemia; I10 Essential (primary) hypertension; M10.9 Gout, unspecified
CPT/HCPCS: 36415; 80053; 80061; 82306; 84443; 84550; 85025

== ENCOUNTER 2022-11-26 05:24 | Day surgery (SDC) | payer OTHER, SELFPAY ==
[2022-11-26 06:02] VITALS: BP 152/86; PULSE 78; RESP 17; TEMP 36.7; O2SAT 99; BMI 26.1
[2022-11-26] MEDS: Lactated Ringers 1,000 ML 15 ML IV (06:02)
--- NOTE | 2022-11-26 06:06 | PCM.HP.STD ---
[facility] - General General Date of Service: 11/26/22 Chief Complaint: Personal history of colon polyps [facility] Narrative BRYAN REEDER, is a 77 M who presents who presents for colonoscopy today. He was seen in the office back on June 2022. He has electively desolate his scheduling. 76-year-old gentleman who is referred by the [place] [facility] for consideration of a screening colonoscopy and a written copy my surgical consult recommendations will return to them.? Records suggest that he has had a previous colonoscopy December 2009 and also possibly April 2015 as well as November 26, 2016.? At that point follow-up at 5 years was recommended..? He has a history of hepatitis C which has been treated.? Medical problems include hypertension and diabetes mellitus.? As of May 19, 2022 white blood cell count was 6.1 with a hemoglobin 13.3 and hematocrit of 30.6 and a platelet count of 177,000.? BUN was 13 and creatinine 1.1 with normal liver function tests.? He does have a personal history of colon polyps.? He states that on every occasion that he had a colonoscopy has had polyps removed.? He has had no weight change.? He is diabetic.? Claims his hemoglobin A1c is 6.3.? He denies any personal or family history of colon cancer. Apparently the patient electively delayed his colonoscopy so that he could have a right total knee replacement with Dr. Bryan Marc. Dr. Marc apparently wrote him for amoxicillin 500 mg oral tablet to be taken which the patient did this morning prior to presenting. The patient states that the bowel prep went smoothly. He states that this will be his fourth colonoscopy and on every single 1 he has had polyps removed. [facility] Medical History Alcohol use Anxiety Arthritis Cancer Depression Diabetes Dietary restriction Easy bruising Former smoker Hepatitis High cholesterol History of injury of tendon History of pain when walking History of steroid therapy History of stress test Hypertension Injury of back Wears dentures Wears glasses Wears hearing aid Home Medications allopurinol 300 mg tablet 300 mg PO DAILY 06/30/22 [History Last Taken Unknown] atenolol 25 mg tablet 25 mg PO DAILY 06/30/22 [History Last Taken 11/26/22] benazepril 40 mg tablet 40 mg PO DAILY 06/30/22 [History Last Taken 11/26/22] glipizide 10 mg tablet, extended release 24 hr 10 mg PO BID 06/30/22 [History Last Taken 09/27/22 05:00] metformin 1,000 mg tablet 1,000 mg PO BID 06/30/22 [History Last Taken 09/27/22 05:00] simvastatin 40 mg tablet 40 mg PO QHS 06/30/22 [History Last Taken Unknown] Allergy/AdvReac Type Severity Reaction Status Date / Time No Known Allergies Allergy Verified 11/26/22 06:02 Family History (Updated 06/30/22 @ 08:57 by Italia Burger) Father Cancer lung Brother Cancer Brother Cancer brain Mother CVA (cerebral vascular accident) Surgical History Hx of colonoscopy Hx of shoulder replacement Hx of total knee arthroplasty Social History (Updated 06/30/22 @ 08:57 by Italia Burger) Smoking Status: Former smoker alcohol intake: current substance use type: does not use ROS Constitutional Constitutional: Reports systems reviewed and no addt'l complaints, except as documented Cardiovascular Cardiovascular: Denies chest pain Respiratory/Chest Respiratory/Chest: Denies shortness of breath at rest Gastrointestinal Gastrointestinal: Denies abdominal pain, change in bowel habits, hematochezia or melena Vital Signs Vital Signs Vital Signs: 11/26/22 06:02 11/26/22 06:02 Temperature 98.1 F Temperature Source Temporal Pulse Rate 78 Respiratory Rate 17 Respiratory Pattern Normal Blood Pressure 152/86 H Blood Pressure Mean 108 Blood Pressure Source Monitor Blood Pressure Position Semi-Fowlers Blood Pressure Location Right Arm Pulse Ox 99 Oxygen Delivery Method Room Air Weight Weight: 203 lb 7.787 oz Body Mass Index (BMI) 26.1 Physical Exam Const alert, oriented x3 and no apparent distress General Appearance: cooperative and comfortable Eyes General Eye: normal appearance of both eyes Neck General: normal visual inspection Chest inspection of chest normal Resp Effort and Inspection: able to speak in complete sentences and symmetric chest movement Auscultation: clear to auscultation bilaterally Cardio regular rate and regular rhythm GI soft to palpation, non-tender and non-distended Extremity no calf tenderness Neuro oriented x3 Psych thought process normal Assessment & Plan Assessment/Plan (1) Personal history of colonic polyps: PLAN: Patient with a personal history of colon polyps presenting for surveillance colonoscopy. At Dr. Marc's instructions he is taken amoxicillin 5 mg tablet preprocedure. He is aware of technique, benefit, risk, alternatives. Essentially this is an open access scheduling as we saw him back in the office June 2022. Arya Gonzalez M.D., F.A.C.S.
--- NOTE | 2022-11-26 06:30 | COLBX_PTH ---
PATIENT: BOONE REEDER LOC: EN U#:[id number] AGE/SX: 77/M ROOM: RE11/26/[address]: Dr. Arya Gonzalez MD : 1945 BED: DIS: 11/26/2022 SPEC #: [id number] RECD: 11/26/22 13:15 STATUS: JEREMI MARTINEZ #: [id number] NAKIA: 11/26/22 06:[address]: Arya Gonzalez DEPT: SURGICAL PATHOLOGY RECD BY: Whit Galvin ENTERED: 11/26/22 13:35 SP TYPE: COLON BX OTHR DR: Dr. Rojelio Cochran MD Tissues: Rectum, NOS Procedures: Surgery Specimen Level IV HEADER OPERATION: Colonoscopy (MAC) PRE-OP DIAGNOSIS: History of colonic polyps TISSUE SUBMITTED: Proximal rectum polyps x3 MICROSCOPIC DIAGNOSIS Proximal rectum polyps, biopsy: Fragments of hyperplastic polyp. SJ:rachel 11/29/2022 MICROSCOPIC DESCRIPTION Slides are reviewed. GROSS DESCRIPTION Received in fixative is one container labeled with the patient's name and designated proximal rectal polyps. The specimen consists of multiple irregular fragments of light dodge soft tissue that in aggregate measure 1.0 x 1.0 x 0.1 cm. The specimen is totally submitted in one cassette. / AM:rachel 11/26/2022 TC:1 CPT: 48248
[2022-11-26 06:54] VITALS: BP 152/86; BP 90/64; PULSE 72; RESP 18; TEMP 37.2; O2SAT 96
--- NOTE | 2022-11-26 06:56 | OP.COLON_ITS ---
Patient Name: Bryan Andrea Procedure Date: 11/26/2022 6:14 AM Date of : 1945 Age: 77 Procedure: Colonoscopy Indications: High risk colon cancer surveillance: Personal history of colonic polyps Providers: Arya Gonzalez MD Referring MD: Arya Gonzalez MD Medicines: See the Anesthesia note for documentation of the administered medications Patient Profile: Last Colonoscopy: November 2016. Complications: No immediate complications. Procedure: Pre-Anesthesia Assessment: - Prior to the procedure, a History and Physical was performed, and patient medications and allergies were reviewed. The patient's tolerance of previous anesthesia was also reviewed. The risks and benefits of the procedure and the sedation options and risks were discussed with the patient. All questions were answered, and informed consent was obtained. Prior Anticoagulants: The patient has taken no previous anticoagulant or antiplatelet agents. ASA Grade Assessment: II - A patient with mild systemic disease. After reviewing the risks and benefits, the patient was deemed in satisfactory condition to undergo the procedure. After I obtained informed consent, the scope was passed under direct vision. Throughout the procedure, the patient's blood pressure, pulse, and oxygen saturations were monitored continuously. The colonoscope was introduced through the anus and advanced to the cecum, identified by appendiceal orifice and ileocecal valve. The colonoscopy was performed without difficulty. The patient tolerated the procedure well. The quality of the bowel preparation was fair. The ileocecal valve and the appendiceal orifice were photographed. Scope In: 6:30:12 AM Scope Withdrawal Time 0 hours 15 minutes 46 seconds Scope Out: 6:50:19 AM Total Procedure Duration Time 0 hours 20 minutes 7 seconds Findings: Hemorrhoids were found on perianal exam. Scattered diverticula were found in the entire colon. Five sessile polyps were found in the rectum. The polyps were 3 to 4 mm in size. These polyps were removed with a cold biopsy forceps. Resection and retrieval were complete. Impression: - Preparation of the colon was fair. - Hemorrhoids found on perianal exam. - Diverticulosis in the entire examined colon. - Five 3 to 4 mm polyps in the rectum, removed with a cold biopsy forceps. Resected and retrieved. Recommendation: - Repeat colonoscopy in 5 years for surveillance. - Telephone my office for pathology results in 1 week. - Continue present medications. Procedure Code(s): --- Professional --- 01853, Colonoscopy, flexible; with biopsy, single or multiple Diagnosis Code(s): --- Professional --- Z86.010, Personal history of colonic polyps K64.9, Unspecified hemorrhoids K62.1, Rectal polyp K57.30, Diverticulosis of large intestine without perforation or abscess without bleeding CPT copyright 2017 [employer]. All rights reserved. The codes documented in this report are preliminary and upon train brakeman review may be revised to meet current compliance requirements. Arya Gonzalez MD 11/26/2022 6:55:24 AM This report has been signed electronically. Number of Addenda: 0 Note Initiated On: 11/26/2022 6:14 AM
--- NOTE | 2022-11-26 06:56 | OP.CCLET_ITS ---
11/26/2022 See above [facility] Re : Colonoscopy procedure for Bryan Emre Dear [facility] This procedure was performed on Saturday, November 26, 2022. My impressions and recommendations are as follows: Impressions : - Preparation of the colon was fair. - Hemorrhoids found on perianal exam. - Diverticulosis in the entire examined colon. - Five 3 to 4 mm polyps in the rectum, removed with a cold biopsy forceps. Resected and retrieved. Recommendations : - Repeat colonoscopy in 5 years for surveillance. - Telephone my office for pathology results in 1 week. - Continue present medications. My findings are described in the full procedure note, which is enclosed. If I can be of further assistance, please feel free to contact me at Doctor phone number(s): Work: . Sincerely, Arya Gonzalez MD 11/26/2022 6:55:24 AM This report has been signed electronically.
[2022-11-26 06:59] LABS: Bedside Glucose 128 mg/dL (74-106)
[2022-11-26 07:00] VITALS: BP 152/86; BP 99/66; PULSE 73; RESP 18; O2SAT 97
[2022-11-26 07:05] VITALS: BP 110/72; BP 152/86; PULSE 73; RESP 18; O2SAT 98
[2022-11-26 07:10] VITALS: BP 117/78; BP 152/86; PULSE 73; RESP 18; TEMP 37.2; O2SAT 100
[2022-11-26 07:24] VITALS: BP 152/86
== END 2022-11-26 07:40 | disposition home or self-care (01) ==
LOC: EN 05:25 → AC 05:38
PROVIDERS: PCP Family Medicine Geriatric Medicine; Referring Provider Family Medicine Geriatric Medicine; Visit Provider Surgery
PROC: 0DJD8ZZ Inspection of Lower Intestinal Tract, Via Natural or Artificial Opening Endoscopic (ICD-10-PCS; CPT 45378; principal; 2022-11-26 06:25)
DX: Z12.11 Encounter for screening for malignant neoplasm of colon (principal); E11.9 Type 2 diabetes mellitus without complications; K57.30 Diverticulosis of large intestine without perforation or abscess without bleeding; Z79.84 Long term (current) use of oral hypoglycemic drugs; E78.00 Pure hypercholesterolemia, unspecified; Z87.891 Personal history of nicotine dependence; I10 Essential (primary) hypertension; K64.9 Unspecified hemorrhoids; K62.1 Rectal polyp; Z86.010 Personal history of colon polyps
CPT/HCPCS: 45380; 82962; 88305; J7120; J2405

== ENCOUNTER → 2023-01-07 | Outpatient (CLI) | payer MEDICARE, SELFPAY ==
--- NOTE | 2023-01-07 06:43 | ECHOCS_ITS ---
Version 2 Reason For Study: Afib/Flutter Procedure This was a 2D Doppler, Color Flow transthoracic echocardiogram. The study was technically difficult. Contrast injection was performed. Exam performed in department. Left Ventricle Normal LV size. Left ventricular systolic function is normal. The estimated ejection fraction is 65 %. No regional wall motion abnormalities noted. Right Ventricle Normal RV size. Normal systolic function. Atria The left atrium is mildly enlarged. Normal right atrium. Mitral Valve Normal mitral valve. Tricuspid Valve Normal tricuspid valve. Mild tricuspid valve insufficiency. Pulmonary artery systolic pressure is 22 mmHg. Aortic Valve The aortic valve is not well visualized in the short axis view. Pulmonic Valve The pulmonic valve is not well visualized. Great Vessels Normal aortic root. The pulmonary artery is normal size. Normal inferior vena cava. Pericardium/Pleural No pericardial effusion. Medication 20 gauge I.V. with prn adaptor inserted into right arm. Diluted definity 2.5ml given slow IV push to enhance endocardial definition. MMode/2D Measurements & Calculations LVIDd: 4.8 cm IVSd: 1.4 cm Ao root diam: 4.0 cm LVIDs: 3.2 cm LVPWd: 1.0 cm LA dimension: 3.9 cm FS: 33.6 % LAV(MOD-bp): 69.1 ml LA A4 area: 22.7 cm2 RA A4 area: 16.0 cm2 LAV(MOD-bp) Indexed: 31.1 ml/m2 LAV(MOD-sp2): 68.2 ml LAV(MOD-sp4): 63.6 ml Time Measurements MV dec time: 0.19 sec Doppler Measurements & Calculations MV E max payam: 81.3 cm/sec Lat Peak E' Payam: 8.2 cm/sec Med Peak E' Payam: 6.6 cm/sec MV A max payam: 74.4 cm/sec E/E' lat: 9.9 E/E' med: 12.2 MV E/A: 1.1 MV V2 max: 86.2 cm/sec MV P1/2t max payam: 87.2 cm/sec Ao V2 max: 157.3 cm/sec MV max P.0 mmHg MV P1/2t: 68.5 msec Ao max P.9 mmHg MV V2 mean: 47.4 cm/sec MV dec slope: 372.8 cm/sec2 Ao V2 mean: 98.2 cm/sec MV mean P.1 mmHg Ao mean P.5 mmHg MV V2 VTI: 26.7 cm MVA(P1/2t): 3.2 cm2 Ao V2 VTI: 30.5 cm AV (velocity ratio): 0.59 LV V1 max: 88.7 cm/sec PA V2 max: 64.3 cm/sec TR max payam: 223.4 cm/sec LV V1 max P.2 mmHg TR max P.0 mmHg LV V1 mean P.5 mmHg LV V1 mean: 56.2 cm/sec LV V1 VTI: 18.1 cm ECHO/Echo Complete W/ Contrast Interpretation Summary Normal LV size. Left ventricular systolic function is normal. The estimated ejection fraction is 65 %. The left atrium is mildly enlarged. Pulmonary artery systolic pressure is 22 mmHg. Contrast injection was performed. Ordering Physician: Robles Moore Referring Physician: Rojelio Cochran Chi Performed By: Tommy Steele RCS
--- NOTE | 2023-01-07 16:11 | STRESSREP ---
Stress Test Report Exercise myocardial perfusion stress test. 77-year-old male with a history of atrial fibrillation Stress protocol: Resting EKG demonstrates normal sinus rhythm with a rate of 76 bpm resting blood pressure is 142/88 mmHg. The patient exercised according to the regular Jemal protocol for a total duration of 6 minutes attaining a maximum heart rate of 129 bpm which was 89% of maximum predicted heart rate; the maximum workload was 7 metabolic equivalents. At rest there were no ST or T wave changes noted to suggest ischemia and at peak exercise upsloping ST changes only were noted which did not meet the criteria for ischemia. No clinical angina was noted the test was terminated due to the target heart rate being achieved/fatigue. The peak blood pressure was 184/78 mmHg. Rate-pressure product was 22,600. Myocardial perfusion protocol. 14.1 mCi of technetium 99m sestamibi was injected at rest. The patient exercised according to regular Jemal protocol for total duration of 6 minutes and at peak exercise 44.3 mCi of technetium 99m sestamibi was injected stress images were obtained stress and rest images were reconstructed in comparing the short axis vertical long and horizontal long axis. Gated images were also obtained. Perfusion SPECT analysis: Review of the stress images demonstrate normal uptake of tracer noted in all areas of the myocardium. The resting images similarly demonstrate normal uptake of tracer noted in all areas of the myocardium. No areas of reversibility are noted to suggest ischemia no previous infarct was noted. Gated SPECT analysis: The gated ejection fraction is 68%. Conclusion: Normal exercise myocardial perfusion stress test at a moderate workload Preserved ejection fraction.
== END | disposition home or self-care (01) ==
LOC: CVS 06:41
PROVIDERS: PCP Family Medicine Geriatric Medicine; Referring Provider Internal Medicine Cardiovascular Disease; Visit Provider Internal Medicine Cardiovascular Disease
DX: I48.91 Unspecified atrial fibrillation (principal); I48.92 Unspecified atrial flutter; R94.31 Abnormal electrocardiogram [ECG] [EKG]
CPT/HCPCS: 78452; 93017; 93225; 93226; 93306; A9500; Q9957; A4216; C8929

== ENCOUNTER → 2023-02-17 | Outpatient (CLI) | payer MEDICARE, SELFPAY ==
--- NOTE | 2023-02-17 09:37 | ART_ITS ---
Reason For Study: Decreased pedal pulses Procedure A bilateral lower extremity continuous wave Doppler with analog waveform analysis,segmental pressures,and ankle brachial indexes without exercise. Left Segmental Pressures Left brachial= 123mmHg. Left posterior tibial artery = 150mmHg. Left dorsalis pedis artery = 138mmHg. Left digit = 89 mmHg. The left dorsalis pedis waveforms are triphasic. The left posterior tibial artery waveforms are triphasic. Right Segmental Pressures Right brachial= 124mmHg. Right posterior tibial artery = 160mmHg. Right dorsalis pedis artery = 154mmHg. Right digit = 103 mmHg. The right dorsalis pedis waveforms are triphasic. The right posterior tibial artery waveforms are triphasic. Indices The right ankle brachial index by the dorsalis pedis is 1.24. The right ankle brachial index by the posterior tibial artery is 1.29. The right digital-brachial index is 0.83. The left ankle brachial index by the dorsalis pedis is 1.11. The left ankle brachial index by the posterior tibial artery is 1.21. The left digital-brachial index is 0.72. VL/Lower Ext Art Exam w/o Exercis Interpretation Summary Right LOURDES 1.29, normal. TBI and Doppler/PVR waveforms of the right leg normal a t rest. Left LOURDES 1.21, normal. Doppler/PVR waveforms of the left leg normal at rest. TB I diminished, pedal/digit disease vs spasm Ordering Physician: Jo Wade Referring Physician: Rojelio Cochran Chi Performed By: Daniela Demarco RVT
== END | disposition home or self-care (01) ==
LOC: CVS 09:36
PROVIDERS: PCP Family Medicine Geriatric Medicine; Referring Provider Physician Assistant Medical; Visit Provider Physician Assistant Medical
DX: I73.9 Peripheral vascular disease, unspecified (principal)
CPT/HCPCS: 93923